=== PATIENT | female | born 1995 | race Caucasian/White ===

== ENCOUNTER → 2016-11-11 | Outpatient (CLI) | payer OTHER ==
[2016-11-11 11:45] LABS: THYROID STIMULATING HORMONE 1.76 uIu/ml (0.300-4.500)
== END | disposition home or self-care (01) ==
LOC: C.LAB1850 10:07
PROVIDERS: ATTEND Internal Medicine Endocrinology, Diabetes & Metabolism
DX: E66.9 Obesity, unspecified (principal)

== ENCOUNTER → 2017-05-10 | Outpatient (CLI) | payer BC ==
[2017-05-10 14:49] LABS: BASO % 0.3 %; BASO ABS # 0.02 K/uL (0-0.2); COMPLETE YES; EOS % 2.8 %; HEMATOCRIT 36.6 % (37-47); IG% 0.1 %; LYMPH % 21.1 %; LYMPH ABS # 1.51 K/uL (1.2-3.4); MEAN CELL VOLUME 88.8 fL (80-100); MEAN CORPUSCULAR HEMOGLOBIN 29.9 pg (25-34); MEAN CORPUSCULAR HGB CONC 33.6 g/dl (32-36); MONO % 7.4 %; NEUT % 68.3 %; PLATELET COUNT 296 K/uL (130-400); RED BLOOD COUNT 4.12 M/uL (4.2-5.4); WHITE BLOOD COUNT 7.16 K/uL (4.8-10.8)
[2017-05-10 15:16] LABS: ALT/SGPT 27 U/L (12-78); AST/SGOT 11 U/L (15-37); BLOOD UREA NITROGEN 11 mg/dl (7-18); BUN/CREATININE RATIO 12.8 (10-20); CALCIUM 8.4 mg/dl (8.5-10.1); CARBON DIOXIDE 28 mmol/L (21-32); CHLORIDE 107 mmol/L (98-107); CREATININE 0.86 mg/dl (0.60-1.20); GLUCOSE 103 mg/dl (70-99); POTASSIUM 3.8 mmol/L (3.5-5.1); SODIUM 140 mmol/L (136-145)
[2017-05-10 15:19] LABS: ALB/GLOB RATIO 1.1 (0.9-2); ALKALINE PHOSPHATASE 105 U/L (45-117)
== END | disposition home or self-care (01) ==
LOC: C.LAB1850 13:33
PROVIDERS: ATTEND Nurse Practitioner Adult Health
DX: R68.89 Other general symptoms and signs (principal)

== ENCOUNTER → 2017-05-26 | Outpatient (CLI) | payer BC ==
[~2017-05-26] MED LIST: GADAVIST IV PRN
--- NOTE | 2017-05-26 17:01 | DIAGNOSTIC IMAGING REPORT ---
BRAIN COMBO FOR SEIZURE CLINICAL HISTORY: R56.9 Seizure-like activityinclude thin sections through hypotha mental status change COMPARISON STUDY: No previous studies for comparison. TECHNIQUE: Utilizing a 1.5 Geena magnet and dedicated coil, multiplanar, multiecho imaging of the brain was performed pre and postcontrast administration. IV administration of 10.5 mL of Gadavist contrast was uneventful. Thin cut coronal T2 imaging was performed according to seizure protocol. FINDINGS: Diffusion-weighted images are negative for an acute ischemic insult. Signal characteristics the cerebellar as well as cerebral hemispheres are unremarkable. Ventricular system is midline. No abnormal postcontrast enhancement. Moderate mucosal thickening of the maxillary and to a lesser extent ethmoid sinuses. IMPRESSION: 1. Negative MRI brain. 2. Moderate mucosal thickening of the maxillary and ethmoid sinuses. The above report was generated using voice recognition software. It may contain grammatical, syntax or spelling errors. Electronically signed by: Efren Herbert M.D. 05/26/2017 5:00 PM Dictated Date/Time: 05/26/2017 4:57 PM
== END | disposition home or self-care (01) ==
LOC: C.MRI 15:32
PROVIDERS: ATTEND Psychiatry & Neurology Neurology
DX: R56.9 Unspecified convulsions (principal)

== ENCOUNTER → 2017-06-01 | Outpatient (CLI) | payer BC | END | disposition home or self-care (01) | LOC: C.PAPS 11:52 | PROVIDERS: ATTEND Obstetrics & Gynecology | DX: Z01.419 Encounter for gynecological examination (general) (routine) without abnormal findings (principal) ==

== ENCOUNTER → 2017-08-02 | Outpatient (CLI) | payer BC ==
[2017-08-02 10:38] LABS: BASO % 0.1 %; BASO ABS # 0.01 K/uL (0-0.2); COMPLETE YES; EOS % 0.6 %; HEMATOCRIT 37.2 % (37-47); IG% 0.1 %; LYMPH % 22.6 %; LYMPH ABS # 1.64 K/uL (1.2-3.4); MEAN CORPUSCULAR HEMOGLOBIN 29.4 pg (25-34); MEAN CORPUSCULAR HGB CONC 33.1 g/dl (32-36); MEAN PLATELET VOLUME 9.5 fL (7.4-10.4); MONO % 7.2 %; NEUT % 69.4 %; PLATELET COUNT 295 K/uL (130-400); RED BLOOD COUNT 4.18 M/uL (4.2-5.4); WHITE BLOOD COUNT 7.25 K/uL (4.8-10.8)
== END | disposition home or self-care (01) ==
LOC: C.LAB1850 09:21
PROVIDERS: ATTEND Obstetrics & Gynecology
DX: Z34.01 Encounter for supervision of normal first pregnancy, first trimester (principal)

== ENCOUNTER → 2017-08-02 | Outpatient (CLI) | payer BC ==
[2017-08-02 11:44] LABS: URINE APPEARANCE CLEAR (CLEAR); URINE BILIRUBIN NEG (NEG); URINE COLOR DK YELLOW; URINE NITRITE NEG (NEG); URINE PH 6.5 (4.5-7.5); URINE SPECIFIC GRAVITY 1.029 (1.000-1.030); UROBILINOGEN NEG (NEG)
[2017-08-02 11:50] LABS: MANUAL MICROSCOPIC REQUIRED? NO; REVIEW REQ? NO
[2017-08-04 02:53] LABS: CHLAMYDIA TRACH RNA*** NOT DETECTED (NOT DETECTED); GC (NEIS GONORRHOEAE)RNA** NOT DETECTED (NOT DETECTED)
== END | disposition home or self-care (01) ==
LOC: C.LABSPEC 10:43
PROVIDERS: ATTEND Obstetrics & Gynecology
DX: Z34.01 Encounter for supervision of normal first pregnancy, first trimester (principal)

== ENCOUNTER → 2017-09-15 | Outpatient (CLI) | payer OTHER | END | disposition home or self-care (01) | LOC: C.LAB1850 16:48 | PROVIDERS: ATTEND Obstetrics & Gynecology | DX: Z34.02 Encounter for supervision of normal first pregnancy, second trimester (principal) ==

== ENCOUNTER → 2017-09-28 | Outpatient (CLI) | payer BC, OTHER ==
--- NOTE | 2017-09-28 17:31 | EEG Procedure Note ---
EEG Procedure Note Date of Service Sep 28, 2017. Start / End Times Start Time: 2:32 PM End Time: 2:52 PM Referring Physician Beny Mahajan History This is a 22-year-old female with seizure-like activity. EEG for further evaluation of possible seizure etiology. Description This is a 21 electrode EEG with a single channel dedicated to limited EKG. The electrodes were placed in accordance with the International 10-20 system. At the start of the recording the patient was in an awake state. Background was well organized and composed of symmetric mixed alpha and beta frequencies. There was a symmetric well-formed moderate amplitude 10 Hz posterior dominant rhythm that was reactive to eye opening and closure. Hyperventilation was not done. Intermittent photic stimulation at various frequencies produced no abnormalities. There was no state changes or sleep transients. Interpretation This is a normal awake only routine EEG. There was no electrographic seizures or epileptiform discharges. Clinical Correlation A normal EEG does not rule out epilepsy if there is a strong clinical suspicion.
== END | disposition home or self-care (01) ==
LOC: C.NEUR 14:18
PROVIDERS: ATTEND Psychiatry & Neurology Neurology
DX: R56.9 Unspecified convulsions (principal)

== ENCOUNTER 2017-11-19 20:06 | Outpatient (CLI) | payer OTHER | END 2017-11-19 21:06 | disposition home or self-care (01) | LOC: C.LD 20:06 → C.OPB 20:06 | PROVIDERS: ATTEND Obstetrics & Gynecology | DX: Z34.02 Encounter for supervision of normal first pregnancy, second trimester (principal); V49.9XXA Car occupant (driver) (passenger) injured in unspecified traffic accident, initial encounter; Z3A.25 25 weeks gestation of pregnancy ==

== ENCOUNTER 2023-02-25 04:59 | Inpatient (IN) ==
--- NOTE | 2023-02-22 09:14 | Anesthesiology Consultation ---
Date of Service February 22, 2023 Assessment & Plan (1) Encounter for pre-operative examination: Plan - BSG to anesthesiologist/OB discretion DOS. - COVID screening: Per mink rancher on 02/22/2023: Travel screen negative, no known COVID-19 positive contacts or current COVID-19 related symptoms in past 2 weeks. To surgeon's discretion if preop COVID testing is needed. Chart Review Chart Review: Acceptable Risk for Surgery and Patient NOT seen in Pre Admission Testing History Surgery Operation Date: 02/25/23 07:30 Proposed Procedures p Section (Delivery of Baby Through Abdominal Incision) - Prema Murphy MD, FACOG Height/Weight Height: 5 ft 6 in Weight: 125.645 kg Allergies Allergy/AdvReac Type Severity Reaction Status Date / Time No Known Drug Allergies Allergy Verified 02/22/23 08:41 Medications Home Medications Medication Instructions Recorded Confirmed Last Taken triamcinolone acetonide 0.1 % 1 applic topical BID #80 grams 01/12/22 02/22/23 Unknown topical cream prenat.vits,kemar,ixb-lgns-mnzub 1 tab PO DAILY 07/15/22 02/22/23 Unknown blood sugar diagnostic (OneTouch #150 ea 07/31/22 02/18/23 Unknown Verio test strips) lancets 33 gauge (OneTouch Delica #150 ea 07/31/22 02/18/23 Unknown Lancets) acetone (urine) test (Ketone Urine #50 ea 08/04/22 02/18/23 Unknown Test strips) ondansetron HCl 4 mg tablet 4 mg PO DAILY #30 tabs 02/04/23 02/22/23 Unknown docusate sodium 100 mg tablet 100 mg PO DAILY 02/22/23 02/22/23 Unknown (Stool Softener) ferrous sulfate 325 mg (65 mg 325 mg PO DAILY 02/22/23 02/22/23 Unknown iron) tablet (iron) Past Medical History Medical History ADHD Anxiety GERD (gastroesophageal reflux disease) Gestational diabetes Diet controlled Hirsutism History of COVID-19 2020>resolved Iron deficiency during PCOS (polycystic ovarian syndrome) Seasonal allergies Seizure pseudo-seizure (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 Father Hypertension Other Diabetes No family history of adverse response to anesthesia No family history of bleeding disorder Denies family history of Ovarian cancer Prostate cancer Myocardial infarction Breast cancer Colorectal cancer Stroke Past Surgical History Surgical History Hx of section x 1 S/P wisdom tooth extraction Social History Smoking Status: Never smoker Do You Dip or Chew Tobacco: No Hx Alcohol Use: No Alcohol type: wine Hx Substance Use: No substance use type: does not use
--- NOTE | 2023-02-24 09:57 | History & Physical Report ---
Date of Service February 24, 2023 Assessment & Plan (1) 39 weeks gestation of : (2) Previous delivery affecting , antepartum: (3) Gestational diabetes mellitus (GDM) affecting , antepartum: (4) Obesity affecting , antepartum: Plan will be admitted for planned c/s. consent reviewed and signed. risks, alt and complications reviewed. bsg in am. discussed concerns with nausea. History of Present Illness Chief Complaint: planned c/s Primary Care Provider: Georgina Mckoy MD 27yo at 39wks ega will present to L&D with planned c/s on 02/25/23. denies rom, vb or ctx. +fm. notes prior c/s and desires repeat c/s, declines tubal. gdm, diet controlled, bsgs within range. obesity, getting wkly nsts. pnl rh pos, ri, gbs neg Allergies Allergy/AdvReac Type Severity Reaction Status Date / Time No Known Drug Allergies Allergy Verified 02/24/23 09:15 Home Medications Medication Instructions Recorded Confirmed Type blood sugar diagnostic (OneTouch #150 ea 07/31/22 02/24/23 Rx Verio test strips) lancets 33 gauge (OneTouch Delica #150 ea 07/31/22 02/24/23 Rx Lancets) acetone (urine) test (Ketone Urine #50 ea 08/04/22 02/24/23 Rx Test strips) ferrous sulfate 325 mg (65 mg 325 mg PO DAILY 02/22/23 02/24/23 History iron) tablet (iron) Patient History Medical History ADHD Anxiety GERD (gastroesophageal reflux disease) Gestational diabetes Diet controlled Hirsutism History of COVID-19 2020>resolved Iron deficiency during PCOS (polycystic ovarian syndrome) Seasonal allergies Seizure pseudo-seizure (has not had recent events/no neurologist)>anxiety related trigger Surgical History Hx of section x 1 S/P wisdom tooth extraction Family History Grandfather (Maternal) Lung cancer Family/Other No problems noted. Father Hypertension Other Diabetes No family history of adverse response to anesthesia No family history of bleeding disorder Denies family history of Ovarian cancer Prostate cancer Myocardial infarction Breast cancer Colorectal cancer Stroke Social History Smoking Status: Never smoker Second Hand Exposure: No; Do You Dip or Chew Tobacco: No; Hx Alcohol Use: No Hx Substance Use: No Preferred Language: Turkmen Visual Impairment: No Limitations Hearing Ability: Normal Account Development Specialist Required: No Beliefs That Will Affect Care: None marital status: marital status details: August (33) [phone] Current Living Situation: Family Current Living Situation Comment: lives with spouse, 2 children , no pets. current occupational status: employed current occupation: [employer] Feels Safe at Home: Yes Childhood Exposure to Second-Hand Smoke: No Diet: lactose free and low carbohydrate caffeine: Yes Dental Care, Regularly: Yes Physical Activity Frequency: 1-2 Times per Week Seatbelt Use: always Sunscreen Use: Yes Do you think of yourself as: straight/heterosexual Sexual Activity: has been sexually active within the last 12 months Assistive Devices: None Review of Systems as per Subjective / HPI Physical Exam Constitutional: WD/WN, vitals as above Respiratory: normal respiratory effort, lungs clear to auscultation Cardiovascular: Rate/Rhythm: regular rate and regular rhythm Gastrointestinal (Abdomen): soft gravid nt Musculoskeletal: no edema nontender calves Neurologic: grossly normal Psychiatric: A+Ox3, euthymic affect Coding Level of Care Code None Diagnoses 39 weeks gestation of Z3A.39 Previous delivery affecting , antepartum O34.219 Gestational diabetes mellitus (GDM) affecting , antepartum O24.419 Obesity affecting , antepartum O99.210
[2023-02-25] MEDS ORDERED: CITRIC ACID/SODIUM CITRATE 15 ML UDC PO SCH (06:00)
[2023-02-25] MEDS ORDERED: ceFAZolin 3,000 MG in DEXTROSE 5% 50 ML IV SCH (06:00)
[2023-02-25] MEDS: LACTATED RINGER'S 1,000 ML IV SCH ×2 (06:10→06:58)
[2023-02-25 06:20] LABS: Basophils # (auto) 0.02 K/uL (0-0.2); Basophils % (auto) 0.2 %; Eosinophils # (auto) 0.05 K/uL (0-0.50); Eosinophils % (auto) 0.6 %; Hemoglobin 9.3 g/dl (12.0-16.0); Immature Granulocytes # (auto) 0.04 K/uL (0.01-0.20); Immature Granulocytes % (auto) 0.5 %; Lymphocytes # (auto) 1.89 K/uL (1.2-3.4); Lymphocytes % (auto) 23.5 %; Mean Corpuscular Volume 76.5 fL (80.0-100.0); Mean Platelet Volume 10.2 fL (9.4-12.4); Monocytes # (auto) 0.38 K/uL (0.11-0.59); Monocytes % (auto) 4.7 %; Neutrophils # (auto) 5.67 K/uL (1.40-6.50); Neutrophils % (auto) 70.5 %; Platelet Count 268 K/uL (130-400); RDW Standard Deviation 48.2 fL (36.4-46.3); Red Blood Count 4.05 M/uL (4.20-5.40); White Blood Count 8.05 K/ul (4.8-10.8)
[2023-02-25] MEDS ORDERED: SODIUM CHLORIDE 0.9% 250 ML IV PRN (06:35)
[2023-02-25] MEDS ORDERED: MoRPHine SULFATE PF 1 MG/ML 10 ML AMP/VIAL ONE (07:00)
[2023-02-25] MEDS ORDERED: fentaNYL citrate PF 100 MCG/2 ML VIAL ONE (07:00)
[2023-02-25] MEDS ORDERED: LACTATED RINGER'S 500 ML IV PRN (07:19)
[2023-02-25] MEDS ORDERED: MoRPHine SULFATE 2 MG/ML CARP IV PRN (07:19)
[2023-02-25] MEDS ORDERED: ONDANSETRON INJ 2 MG/ML 2 ML VIAL IV PRN ×2 (07:19→08:34)
[2023-02-25] MEDS ORDERED: NALBUPHINE HCL INJ 10 MG/ML AMP IV PRN (07:19)
[2023-02-25] MEDS ORDERED: MoRPHine SULFATE PF 1 MG/ML 10 ML AMP/VIAL INT SPINAL ONE (07:19)
[2023-02-25] MEDS ORDERED: NALOXONE HCL 0.08 MG in SYRINGE 1.8 ML IV PRN (07:19)
[2023-02-25] MEDS ORDERED: diphenhydrAMINE 50 MG/ML VIAL IV PRN (07:19)
[2023-02-25] MEDS ORDERED: ePHEDrine sulfate 50 MG/ML AMP IV PRN (07:19)
[2023-02-25] MEDS ORDERED: NALOXONE HCL 1 MG in SODIUM CHLORIDE 0.9% 1000ML 1,000 ML IV PRN (07:19)
[2023-02-25] MEDS ORDERED: NALOXONE HCL 0.4 MG/1 ML VIAL/CARP IV PRN (07:19)
--- NOTE | 2023-02-25 07:23 | History & Physical Bridge Note ---
Date of Service February 25, 2023 History & Physical Bridge Note I have examined the patient, reviewed the History & Physical and in the interval since the performance of the History & Physical I have noted the following changes of clinical significance: no changes noted
[2023-02-25] MEDS ORDERED: DC INTRASPINAL MORPHINE SCH (07:30)
[2023-02-25] MEDS ORDERED: SODIUM CHLORIDE 0.9% 1000ML 1,000 ML IV SCH (07:30)
[2023-02-25] MEDS ORDERED: NO NARCOTICS OR SEDATIVES SCH (07:30)
[2023-02-25] MEDS ORDERED: PHENYLEPHRINE 100MCG/ML 5ML SYR ONE (08:22)
[2023-02-25] MEDS ORDERED: ePHEDrine sulfate 50 MG/ML SYR ONE (08:22)
--- NOTE | 2023-02-25 08:33 | Operative Report ---
PG Post Operative Report Pre & Post Diagnosis Operation Date: 02/25/23 07:30 Pre-Op Diagnosis: 39+ weeks IUP Prior Section, Desires repeat section Post-Op Diagnosis: same I identified the patient and participated in the time-out.: Yes Procedure Operation Date: 02/25/23 07:30 Actual Procedures p Repeat Low Transverse Section (Delivery of Baby Through Abdominal Incision) - Prema Murphy MD, FACOG Surgeon Prema Murphy MD, FACOG Personal Consultant Suzanna Arambula Estimated Blood Loss 500 Findings Consistent with Post-Op Diagnosis (viable female, apgars pending. normal uterus, tubes and ovaries bilaterally.) Fluids 1250 Specimens cord blood placenta hold Drains pan Anesthesia Type Spinal Complications none Disposition Accompanied Patient To Recovery: No Disposition: L&D Indications 27yo at 39+wks corina presents to L&D for planned section. She had prior section and desires repeat section. Description of Procedure The patient was taken to the operating room and identified. After adequate a nesthesia was obtained, she was placed in the supine position with a leftward tilt on the operating table and prepped and draped in the usual sterile fashion. A pan catheter had already been placed. The knife was used to create a Pfannensteil skin incision that was carried down to the underlying layer of fascia. The fascia was nicked in the midline and this opening was extended laterally using Freire scissors. Mandi clamps were placed on the superior and inferior aspect of the fascial incision tenting it upward and the underlying rectus muscles were dissected off the overlying fascia both sharply and bluntly using Freire scissors. The rectus muscles were bluntly in the midline. The peritoneal cavity was bluntly entered into. This opening was stretched. The bladder blade was placed. The vesicouterine peritoneum was elevated and opened up into and the bladder flap was created digitally and bladder blade was replaced. The knife was used to create a hysterotomy and this opening was stretched. The operators hand was placed through the hysterotomy and the bladder blade was removed. The head was elevated and flexed and vacuum applied and with fundal pressure the head was delivered. The shoulders and body were rapidly delivered. The cord was clamped and cut and the infant's mouth and nares were bulb suction. The was handed off to the awaiting taiwo asher. Cord blood was obtained. The placenta was manually expressed. The uterus was exteriorized and cleared of all clots and debris. Dilute IV Pitocin was begun. The uterine tone was improving. The hysterotomy was closed in a running interlocking fashion using 0 Vicryl followed by a second imbricating layer of 0 Vicryl. The hysterotomy was hemostatic. The pelvis was irrigated. The uterus was returned to the abdomen. The gutters were cleared of all clots and debris. The hysterotomy was reinspected and noted to be hemostatic. The fascia was then closed in running fashion using 0 Vicryl. The subcutaneous fat was copiously irrigated and reapproximated using 2-0 chromic. The skin was closed in a subcuticular fashion using 4-0 monocryl. At this point the procedure was terminated. The patient was transferred to the recovery room in stable condition. All sponge, lap and needle counts are correct x2. I attest to the content of the Intraoperative Record and any orders documented therein. Any exceptions are noted below. OB Procedure Charges 00648
[2023-02-25] MEDS ORDERED: MAGNESIUM HYDROXIDE SUSP 30 ML UDC PO PRN (08:34)
[2023-02-25] MEDS ORDERED: HYDROCORTISONE ACETATE 25 MG SUPP PR PRN (08:34)
[2023-02-25] MEDS ORDERED: SENNA 8.6 MG TAB PO PRN (08:34)
[2023-02-25] MEDS ORDERED: DIPHTHERIA/TETANUS/PERTUSSIS Vaccine (Tdap, Age 7+yrs) 0.5mL SYR/VL IM ONE (08:34)
[2023-02-25] MEDS ORDERED: BENZOCAINE 20% AER SPR 82.5 GM CAN EXT PRN (08:34)
[2023-02-25] MEDS: KETOROLAC 30 MG/ML VIAL IV PRN ×2 (09:37→18:30)
--- NOTE | 2023-02-25 09:46 | Anesthesiology Progress Note ---
Date of Service February 25, 2023 Anesthesia Post Procedure Vital Signs Vital Signs: Temp Pulse Resp BP Pulse Ox O2 Del Method 02/25/23 09:44 18 Room Air 02/25/23 09:30 18 Room Air 02/25/23 09:20 18 Room Air 02/25/23 09:10 18 Room Air 02/25/23 08:50 18 02/25/23 09:00 18 Room Air 02/25/23 08:40 36.4 C L 18 Room Air 02/25/23 09:43 64 100 02/25/23 09:40 69 114/63 02/25/23 09:38 63 100 02/25/23 09:33 66 100 02/25/23 09:29 76 111/64 02/25/23 09:28 71 100 02/25/23 09:23 78 117/63 100 02/25/23 09:18 70 100 02/25/23 09:13 72 100 02/25/23 09:09 76 109/67 02/25/23 09:08 70 100 02/25/23 09:03 77 100 02/25/23 08:59 67 109/67 02/25/23 08:58 69 100 02/25/23 08:53 75 99 02/25/23 08:49 75 114/64 02/25/23 08:48 75 100 02/25/23 08:43 72 100 02/25/23 08:39 80 111/63 02/25/23 08:38 76 100 02/25/23 07:10 20 02/25/23 07:10 36.7 C 20 02/25/23 07:07 80 131/85 02/25/23 05:53 18 02/25/23 05:53 36.7 C 18 02/25/23 05:47 36.7 C 18 Pain Intensity Bilateral Abdomen: Pain Intensity: 7 Transfer of Care Handoff Completed per policy Notes Mental Status: alert / awake / arousable and participated in evaluation Patient Amnestic to Procedure: Yes Nausea / Vomiting: adequately controlled Pain: adequately controlled Airway Patency, RR, SpO2: stable & adequate BP & HR: stable & adequate Hydration State: stable & adequate Neuraxial Anesthesia: was administered and sensory block is resolving Anesthetic Complications: no major complications apparent and Pt Satisfied with anesthetic care
[2023-02-25] MEDS: OXYTOCIN 20 UNITS in LACTATED RINGER'S 1,000 ML IV SCH ×2 (10:00→18:26)
[2023-02-25] MEDS: SIMETHICONE 80 MG CHEW PO SCH ×3 (15:01→21:40)
[2023-02-25] MEDS ORDERED: SODIUM CHLORIDE 0.9% 1000ML 500 ML IV ONE (18:15)
[2023-02-25] MEDS: DOCUSATE SODIUM 100 MG CAP PO SCH (21:38)
[2023-02-26] MEDS: KETOROLAC 30 MG/ML VIAL IV PRN (00:56)
[2023-02-26] MEDS ORDERED: diphenhydrAMINE 50 MG/ML VIAL IV PRN (01:21)
[2023-02-26] MEDS ORDERED: KETOROLAC 30 MG/ML VIAL IV PRN (01:21)
[2023-02-26] MEDS ORDERED: diphenhydrAMINE Capsule 25 MG CAP PO PRN (01:21)
[2023-02-26] MEDS ORDERED: ZOLPIDEM TARTRATE 5 MG TAB PO PRN (01:21)
[2023-02-26] MEDS ORDERED: PROMETHAZINE HCL 25 MG in SODIUM CHLORIDE 0.9% 50 ML IV PRN (01:21)
--- NOTE | 2023-02-26 01:33 | Communication Note ---
Date of Service: February 26, 2023 called by nursing multiple times re: urine output <30ccc/hr. have given bolus, pt has been without concerning sx for hemodynamic instability. no dizziness, l ightheadedness, dangling, feeding baby, drinking herself well, no n/v or increased pain. bps noted but trend has been similar and no resultant tachycardia over all this time to suggest hemodynamic instability. right now making about 20-25cc/hr urine. will keep pan in and plan her am labs and cont to monitor. nursing aware of plan, relaying to pt that pan staying in for now.
[2023-02-26 04:28] LABS: Basophils # (auto) 0.01 K/uL (0-0.2); Basophils % (auto) 0.1 %; Eosinophils # (auto) 0.09 K/uL (0-0.50); Eosinophils % (auto) 1.3 %; Hematocrit (blood only) 27.2 % (37.0-47.0); Hemoglobin 8.2 g/dl (12.0-16.0); Immature Granulocytes # (auto) 0.03 K/uL (0.01-0.20); Immature Granulocytes % (auto) 0.4 %; Lymphocytes # (auto) 1.52 K/uL (1.2-3.4); Lymphocytes % (auto) 21.4 %; Mean Corpuscular Hemoglobin 23.3 pg (25.0-34.0); Mean Corpuscular Hgb Conc 30.1 g/dL (32.0-36.0); Mean Corpuscular Volume 77.3 fL (80.0-100.0); Mean Platelet Volume 10.1 fL (9.4-12.4); Monocytes # (auto) 0.45 K/uL (0.11-0.59); Monocytes % (auto) 6.3 %; Neutrophils % (auto) 70.5 %; Platelet Count 201 K/uL (130-400); RDW Coefficient of Variation 18.4 % (11.5-14.5); RDW Standard Deviation 50.1 fL (36.4-46.3); Red Blood Count 3.52 M/uL (4.20-5.40)
[2023-02-26] MEDS: oxyCODONE/ACETAMINOPHEN 5mg/325mg TAB PO PRN ×5 (05:19→22:39)
[2023-02-26] MEDS: IBUPROFEN 600 MG TAB PO PRN ×5 (05:20→22:39)
--- NOTE | 2023-02-26 06:28 | Obstetrical Progress Note ---
Date of Service <John Trimble - Last Filed: 02/26/23 06:44> February 26, 2023 Assessment & Plan <John Trimble - Last Filed: 02/26/23 06:44> (1) state: (2) S/P section: (3) Gestational diabetes mellitus (GDM) affecting , antepartum: (4) Previous delivery affecting , antepartum: Plan - Feels well today. - Had some low urinary output throughout the day yesterday, s/p C section on 02/25, though remained hemodynamically stable. Morning labs benign. - Increase urinary output overnight, will remove pan this AM. - Has been ambulating well. - Has been on clear liquids until she passed gas, which she did this AM. Plan to start regular OB diet this AM. - Pain well controlled with PRN pain meds. - Routine care -- OOB, ambulation, diet progression as tolerated - After discharge will have 6 week follow-up with Dr. Murphy. Day #:: 1 <Prema Murphy MD, FACOG - Last Filed: 02/26/23 07:13> (1) state: (2) S/P section: (3) Gestational diabetes mellitus (GDM) affecting , antepartum: (4) Previous delivery affecting , antepartum: Subjective <John Trimble - Last Filed: 02/26/23 06:44> Ambulation: ambulating normally Voiding: pan catheter in place Passing Gas:: Yes Diet Tolerance:: clear liquids Lochia:: Small Feeding Type:: breast feeding Current Pain Level(1-10): 5 Review of Systems Denies fever, chills, sweats Denies shortness of breath, difficulty breathing, chest pain, palpitations, chest pressure. Denies breast pain. Denies dysuria. Denies headache or changes in vision. Physical Exam <John TrimbleDO - Last Filed: 02/26/23 06:44> General: Alert, oriented. No acute distress. Cardiac: Regular rate and rhythm, no murmurs/rubs/gallops. Respiratory: Clear to auscultation bilaterally a/p, no wheezes/rales/rhonchi. No increased work of breathing. Symmetrical chest rise. No respiratory distress. Abdomen: Soft, nontender, nondistended. Bowel sounds present. Uterus: Uterine fundus firm, palpable 1 cm below umbilicus. Lower Extremities: No lower extremity edema or swelling. No deep calf pain. Nai's negative bilaterally. Results & Data <John Trimble DO - Last Filed: 02/26/23 06:44> Vital Signs (Past 12 Hours) Vital Signs Temp Pulse Resp BP Pulse Ox O2 Del Method 02/26/23 01:20 18 98 02/26/23 00:35 16 97 02/26/23 04:10 36.6 C 81 16 95/64 L 98 Room Air 02/25/23 23:45 18 96 02/25/23 23:45 36.9 C 76 18 91/60 L 97 Room Air 02/25/23 21:30 18 98 02/25/23 22:42 20 97 02/25/23 20:30 16 98 02/25/23 19:10 18 97 02/25/23 19:10 36.9 C 80 16 99/64 L 97 Room Air <Prema Murphy MD, FACOG - Last Filed: 02/26/23 07:13> Co-Signing Physician Notes Resident Physician Supervision Note: I was present with Dr. Trimble during the history and exam. I discussed the case with the resident and agree with the findings and plan as documented in the note. Any exceptions or clarifications are listed here: doing well. denies complaints. +flatus. no n/v/cp/sob. abd soft ff 2 down nt, incision c/d/i. ext nt calves. pod #1 , await spont void. hgb noted. adv diet. rh pos, ri. . Documented By: Prema Murphy MD, FACOG Resident Activity Tracking <John Trimble, - Last Filed: 02/26/23 06:44> Resident Involvement: Resident Care Provided Care Provided: OB Delivery
[2023-02-26] MEDS: FERROUS SULFATE 325 MG TAB PO SCH (08:50)
[2023-02-26] MEDS: DOCUSATE SODIUM 100 MG CAP PO SCH ×2 (08:50→20:33)
[2023-02-26] MEDS: SIMETHICONE 80 MG CHEW PO SCH ×4 (08:50→20:33)
[2023-02-26] MEDS: PRENATAL VITAMIN 1 TAB PO SCH (08:50)
[2023-02-26] MEDS ORDERED: bisacodyL 5 MG TABEC PO SCH (20:00)
[2023-02-27] MEDS: oxyCODONE/ACETAMINOPHEN 5mg/325mg TAB PO PRN ×4 (06:24→21:13)
[2023-02-27] MEDS: IBUPROFEN 600 MG TAB PO PRN ×4 (06:25→21:13)
[2023-02-27 07:15] LABS: Hematocrit (blood only) 27.7 % (37.0-47.0); Hemoglobin 8.2 g/dl (12.0-16.0)
--- NOTE | 2023-02-27 07:51 | Obstetrical Progress Note ---
Date of Service <John Trimble DO - Last Filed: 02/27/23 07:52> February 27, 2023 Assessment & Plan <John Trimble DO - Last Filed: 02/27/23 07:52> (1) state: (2) S/P section: (3) Gestational diabetes mellitus (GDM) affecting , antepartum: (4) Previous delivery affecting , antepartum: Plan - Status post on 02/25 - Feels well today. Eating well, voiding well, ambulating well. - Pain well controlled with PRN pain meds. - Routine care -- OOB, ambulation, diet progression as tolerated - After discharge will have 6 week follow-up with Dr. Murphy. Day #:: 2 <Boris Ruiz MD - Last Filed: 03/01/23 08:07> (1) state: (2) S/P section: (3) Gestational diabetes mellitus (GDM) affecting , antepartum: (4) Previous delivery affecting , antepartum: Subjective <John Trimble - Last Filed: 02/27/23 07:52> Ambulation: ambulating normally Voiding: no voiding problems Passing Gas:: Yes Diet Tolerance:: regular diet Lochia:: Small Feeding Type:: breast feeding Current Pain Level(1-10): 5 Review of Systems Denies fever, chills, sweats Denies shortness of breath, difficulty breathing, chest pain, palpitations, chest pressure. Denies breast pain. Denies dysuria. Denies headache or changes in vision. Physical Exam <John WardMarry Nai - Last Filed: 02/27/23 07:52> General: Alert, oriented. No acute distress. Cardiac: Regular rate and rhythm, no murmurs/rubs/gallops. Respiratory: Clear to auscultation bilaterally a/p, no wheezes/rales/rhonchi. No increased work of breathing. Symmetrical chest rise. No respiratory distress. Abdomen: Soft, nontender, nondistended. Bowel sounds present. Uterus: Uterine fundus firm, palpable 2 cm below umbilicus. Lower Extremities: No lower extremity edema or swelling. No deep calf pain. Nai's negative bilaterally. Results & Data <John Trimble DO - Last Filed: 02/27/23 07:52> Vital Signs (Past 12 Hours) Vital Signs Temp Pulse Resp BP Pulse Ox O2 Del Method 02/26/23 23:00 36.9 C 84 18 104/67 98 Room Air <Boris Ruiz MD - Last Filed: 03/01/23 08:07> Co-Signing Physician Notes Patient seen with resident and agree with the above findings and plan. Routine care Resident Activity Tracking <John Trimble DO - Last Filed: 02/27/23 07:52> Resident Involvement: Resident Care Provided Care Provided: OB Delivery
[2023-02-27] MEDS: FERROUS SULFATE 325 MG TAB PO SCH (08:07)
[2023-02-27] MEDS: DOCUSATE SODIUM 100 MG CAP PO SCH ×2 (08:07→21:13)
[2023-02-27] MEDS: SIMETHICONE 80 MG CHEW PO SCH ×4 (08:07→21:13)
[2023-02-27] MEDS: PRENATAL VITAMIN 1 TAB PO SCH (08:09)
[2023-02-27] MEDS ORDERED: bisacodyL 10 MG SUPP PR PRN (08:34)
[2023-02-28] MEDS: IBUPROFEN 600 MG TAB PO PRN ×2 (03:25→08:28)
[2023-02-28] MEDS: oxyCODONE/ACETAMINOPHEN 5mg/325mg TAB PO PRN ×2 (03:25→08:27)
[2023-02-28] MEDS: SIMETHICONE 80 MG CHEW PO SCH (08:27)
[2023-02-28] MEDS: FERROUS SULFATE 325 MG TAB PO SCH (08:27)
[2023-02-28] MEDS: DOCUSATE SODIUM 100 MG CAP PO SCH (08:27)
[2023-02-28] MEDS: PRENATAL VITAMIN 1 TAB PO SCH (08:27)
--- NOTE | 2023-02-28 08:59 | Obstetrical Progress Note ---
Date of Service February 28, 2023 Assessment & Plan (1) state: POD#2 doing well. Incision CDI. Feels ready for DC home today. Reviewed instructions. #20 percocet sent to pharmacy. Followup 6w PP. Subjective Ambulation: ambulating normally Voiding: no voiding problems Diet Tolerance:: regular diet Lochia:: Moderate Review of Systems All systems reviewed & are unremarkable except as noted in HPI & below Physical Exam Constitutional WD/WN, vitals as above no acute distress Respiratory normal respiratory effort Cardiovascular Rate/Rhythm: regular rate and regular rhythm Gastrointestinal (Abdomen) Inspection/Auscultation: abdomen normal to inspection; abdomen not distended Percussion/Palpation: abdomen soft Genitourinary OB Exam Abdomen: + fundal height Fundus: + firm; not tender Results & Data Vital Signs (Past 12 Hours) Vital Signs Temp Pulse Resp BP BP Pulse Ox O2 Del Method 02/28/23 07:15 36.7 C 81 16 104/72 Room Air 02/27/23 23:07 36.5 C 75 18 111/73 98 Room Air
--- NOTE | 2023-03-03 13:58 | Discharge Summary ---
Date of Service Date of admission: February 26 Date of discharge: February 28, 2023 Admission HPI Per Admitting Provider 27yo at 39wks ega will present to L&D with planned c/s on 02/25/23. denies rom, vb or ctx. +fm. notes prior c/s and desires repeat c/s, declines tubal. gdm, diet controlled, bsgs within range. obesity, getting wkly nsts. pnl rh pos, ri, gbs neg Discharge Data Consultations 02/25/23 04:59 Consult Anesthesiology Stat Procedures Performed Operation Date: 02/25/23 07:30 Actual Procedures p Repeat Low Transverse Section (Delivery of Baby Through Abdominal Incision) - Prema Murphy MD, FACOG Hospital Course (1) state: Plan The patient underwent the above stated procedure without incident and her postoperative course and recovery was uncomplicated. On her postoperative day #2 she was tolerating a regular diet, voiding spontaneously, ambulating without problem and was using oral meds for adequate pain control. Her postoperative hemoglobin was 8.2. She was given written and verbal discharge instructions and told to followup in office at 6wks. She was given appropriate pain medicine prescriptions. Coding Level of Care Code None Diagnoses state Z39.2
== END 2023-02-28 11:03 | disposition home or self-care (01) | DRG 788 ==
LOC: 4S1 04:59 → EDSTATUS 07:30 → 4E2 11:32